=== PATIENT | female | born 1955 | race Caucasian/White ===

== ENCOUNTER 2021-06-04 08:33 | Outpatient (CLI) | payer BC | END 2021-06-04 08:34 | disposition home or self-care (01) | LOC: CSHMAMMO 08:33 | PROVIDERS: ATTEND Internal Medicine | DX: Z12.31 Encounter for screening mammogram for malignant neoplasm of breast (principal); Z80.3 Family history of malignant neoplasm of breast | CPT/HCPCS: 77063; 77067 ==

== ENCOUNTER 2021-12-29 10:04 | Outpatient (CLI) | payer MEDICARE, BC ==
[2021-12-29 12:33] LABS: Hemoglobin 14.2 g/dL (12.0-15.5); Mean Corpuscular HGB CONC 32.2 g/dL (32.0-36.0); Mean Corpuscular Hemoglobin 27.3 pg (27.0-33.0); Mean Corpuscular Volume 84.6 fl (81.6-98.3); Mean Platelet Volume 10.6 fl (7.4-10.4); Platelet Count 309 10x3/uL (150-450); RBC Distribution Width 14.2 % (11.5-14.5); Red Blood Cell (RBC) Count 5.21 10x6/uL (3.90-5.03); White Blood Cell (WBC) Count 6.2 10x3/uL (3.5-10.5)
[2021-12-29 12:44] LABS: Anion Gap 16 mmol/L (10-20); BUN (Urea Nitrogen) 12 mg/dL (9.8-20.1); Calc. Creatinine Clearance 0 mL/min (70-130); Calcium 10.3 mg/dL (7.8-10.44); Carbon Dioxide 27 mmol/L (23-31); Chloride 104 mmol/L (98-107); Estimated GFR 81; Glucose 111 mg/dL (80-115); Potassium 4.7 mmol/L (3.5-5.1); Sodium 142 mmol/L (136-145)
== END 2021-12-29 10:05 | disposition home or self-care (01) ==
LOC: CSHLAB 10:04
PROVIDERS: ATTEND Surgery
DX: Z01.818 Encounter for other preprocedural examination (principal); Z20.822 Contact with and (suspected) exposure to COVID-19
CPT/HCPCS: 80048; 85027; 87811; 93005; 93010

== ENCOUNTER 2022-01-01 11:12 | Day surgery (SDC) | payer MEDICARE, BC ==
[2021-12-30 14:24] VITALS: BMI 39.5
[2022-01-01] MEDS ORDERED: Midazolam HCl 2 mg/2 ml Vial ONE ×2 (12:07→13:41)
[2022-01-01] MEDS ORDERED: Lidocaine 1% MPF 2 ML VIAL ONE (12:11)
[2022-01-01] MEDS ORDERED: HYDROcodone/Acetaminophen 5/325 mg Tablet PO PRN ×2 (13:16)
[2022-01-01] MEDS ORDERED: Acetaminophen 325 MG TAB PO PRN (13:16)
[2022-01-01] MEDS ORDERED: Bupivacaine 0.25% HCL 30 ML VIAL ONE (13:37)
[2022-01-01] MEDS ORDERED: EPINEPHrine 1 MG/ML AMP ONE (13:38)
[2022-01-01] MEDS ORDERED: PROPOFOL 20 ML ONE (13:40)
[2022-01-01] MEDS ORDERED: Fentanyl 100 MCG/2 ML VIAL ONE ×3 (13:41→15:35)
[2022-01-01] MEDS ORDERED: Lidocaine 2% PF 5 ML VIAL ONE (13:41)
[2022-01-01] MEDS ORDERED: Ondansetron PF 4 MG/2 ML Vial ONE (13:41)
[2022-01-01] MEDS ORDERED: Dexamethasone 4 mg/ml Vial ONE (13:41)
[2022-01-01] MEDS ORDERED: Rocuronium Bromide 10 MG/ML (10ML VIAL) ONE (13:41)
[2022-01-01] MEDS ORDERED: CEFAZOLIN 2 GM VIAL ONE (13:44)
[2022-01-01] MEDS ORDERED: SUGAMMADEX SODIUM 200 MG/2 ML VIAL ONE (13:46)
== END 2022-01-01 17:20 | disposition home or self-care (01) ==
LOC: CSHSDC 11:12
PROVIDERS: ATTEND Surgery
PROC: 0WUF4JZ Supplement Abdominal Wall with Synthetic Substitute, Percutaneous Endoscopic Approach (ICD-10-PCS; principal; 2022-01-01)
DX: K43.0 Incisional hernia with obstruction, without gangrene (principal); E03.9 Hypothyroidism, unspecified; E78.00 Pure hypercholesterolemia, unspecified; F41.9 Anxiety disorder, unspecified; Z86.16 Personal history of COVID-19; Z20.822 Contact with and (suspected) exposure to COVID-19; Z79.899 Other long term (current) drug therapy; Z88.8 Allergy status to other drugs, medicaments and biological substances; E66.01 Morbid (severe) obesity due to excess calories; Z68.41 Body mass index [BMI] 40.0-44.9, adult
CPT/HCPCS: C1713; J0171; J0690; J1100; J2001; J2250; J2405; J2704; J3010; S0020

== ENCOUNTER 2023-07-21 10:36 | Outpatient (CLI) | payer MEDICARE | END 2023-07-21 10:37 | disposition home or self-care (01) | LOC: CSHMAMMO 10:36 | PROVIDERS: ATTEND Internal Medicine | DX: Z12.31 Encounter for screening mammogram for malignant neoplasm of breast (principal); Z80.3 Family history of malignant neoplasm of breast | CPT/HCPCS: 77063; 77067 ==